=== PATIENT | female | born 1955 | race Caucasian/White ===

== ENCOUNTER 2018-05-17 11:51 | Inpatient (IN) | payer MEDICARE ==
[~2018-05-17] VITALS: Ht 162.6 cm; Wt 94.6 kg
--- NOTE | 2018-05-17 12:13 | PHYS DOC ---
Past History Past Medical History: CAD, Diabetes, Hypertension Smoking: Quit Greater Than 1 Year Adult General Chief Complaint Chief Complaint: CHEST PAIN HPI HPI Patient is a 63-year-old female who presents to the emergency department for evaluation. She states that since this morning, she has been having some anterior chest pressure, with radiation towards her axilla bilaterally. The discomfort has been waxing and waning, seems to be somewhat worsened by exertion. She has not had any significant shortness of breath. She has not had any nausea, vomiting, diaphoresis. She states she had a heart attack about 3 years ago, and states his symptoms are not quite has developed as they were at that time, but she waited several hours after her symptoms started last time before coming to get medical care. 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 A catheterization report from [facility] is being requested. She is having some mild discomfort at this time, the pain is not significant. There are no alleviating or exacerbating factors to the patient's symptoms, except as noted above. Review of Systems Review of Systems Constitutional: Denies fever or chills [] Eyes: Denies change in visual acuity, redness, or eye pain [] HENT: Denies nasal congestion or sore throat [] Respiratory: Denies cough or shortness of breath [] Cardiovascular: No additional information not addressed in HPI [] GI: Denies abdominal pain, nausea, vomiting, bloody stools or diarrhea [] : Denies dysuria or hematuria [] Musculoskeletal: Denies back pain or joint pain [] Integument: Denies rash or skin lesions [] Neurologic: Denies headache, focal weakness or sensory changes [] Endocrine: Denies polyuria or polydipsia [] All other systems were reviewed and found to be within normal limits, except as documented in this note. Current Medications Current Medications Current Medications Medications (Trade) Dose Ordered Sig/Esther Start Time Stop Time Status Last Admin Dose Admin Aspirin (Children'S Aspirin) 324 mg 1X ONCE 05/17/18 12:15 05/17/18 12:16 UNV Morphine Sulfate (Morphine 2mg Syringe) 4 mg 1X ONCE 05/17/18 12:15 05/17/18 12:16 UNV Nitroglycerin (Nitrostat) 0.4 mg 1X ONCE 05/17/18 12:15 05/17/18 12:16 UNV Allergies Allergies Allergies Coded Allergies Type Severity Reaction Last Updated Verified No Known Drug Allergies 05/17/18 No Physical Exam Physical Exam PHYSICAL EXAM: CONSTITUTIONAL: Well developed, well nourished HEAD: normocephalic, atraumatic EENT: PERRL, EOMI. Conjunctivae normal color, sclerae non-icteric; moist mucous membranes. NECK: Supple, non-tender; no meningismus. LUNGS: Lungs CTA, breathing even and unlabored. Normal air movement. HEART: Regular rate and rhythm, no murmur CHEST: No deformity; non-tender ABDOMEN: The abdomen is soft, and non-tender, no masses or bruits. EXTREM: Normal ROM; no deformity, no calf tenderness. Normal pulses palpable in all extremities. There is no pedal edema. SKIN: No rash; no diaphoresis NEURO: Alert; normal speech and cognition; CN's grossly intact; strength grossly intact without focal deficit. BACK: No CVA TTP. Current Patient Data Lab Results Laboratory Tests Test 05/17/18 12:24 White Blood Count 4.2 x10^3/uL Red Blood Count 4.46 x10^6/uL Hemoglobin 13.8 g/dL Hematocrit 41.3 % Mean Corpuscular Volume 93 fL Mean Corpuscular Hemoglobin 31 pg Mean Corpuscular Hemoglobin Concent 33 g/dL Red Cell Distribution Width 14.0 % Platelet Count 203 x10^3/uL Neutrophils (%) (Auto) 50 % Lymphocytes (%) (Auto) 35 % Monocytes (%) (Auto) 10 % Eosinophils (%) (Auto) 5 % Basophils (%) (Auto) 1 % Neutrophils # (Auto) 2.1 x10^3uL Lymphocytes # (Auto) 1.5 x10^3/uL Monocytes # (Auto) 0.4 x10^3/uL Eosinophils # (Auto) 0.2 x10^3/uL Basophils # (Auto) 0.0 x10^3/uL Prothrombin Time 9.8 SEC Prothromb Time International Ratio 1.0 Activated Partial Thromboplast Time 22 SEC Sodium Level 137 mmol/L Potassium Level 4.4 mmol/L Chloride Level 102 mmol/L Carbon Dioxide Level 27 mmol/L Anion Gap 8 Blood Urea Nitrogen 11 mg/dL Creatinine 0.5 mg/dL Estimated GFR (Cockcroft-Gault) 123.8 BUN/Creatinine Ratio 22 Glucose Level 172 mg/dL Calcium Level 9.1 mg/dL Total Bilirubin 0.5 mg/dL Aspartate Amino Transf (AST/SGOT) 23 U/L Alanine Aminotransferase (ALT/SGPT) 29 U/L Alkaline Phosphatase 81 U/L Creatine Kinase 49 U/L Creatine Kinase MB (Mass) 0.7 ng/mL Creatine Kinase MB Relative Index 1.4 % Troponin I Quantitative < 0.017 ng/mL UZ-Hdq-N-Type Natriuretic Peptide 344 pg/mL Total Protein 7.4 g/dL Albumin 3.2 g/dL Albumin/Globulin Ratio 0.8 Current Medications Medications (Trade) Dose Ordered Sig/Esther Route PRN Reason Start Time Stop Time Status Last Admin Dose Admin Aspirin (Children'S Aspirin) 324 mg 1X ONCE PO 05/17/18 12:45 05/17/18 12:46 DC 05/17/18 12:18 Morphine Sulfate (Morphine 4mg Syringe) 4 mg 1X ONCE IV 05/17/18 12:45 05/17/18 12:46 DC Nitroglycerin (Nitrostat) 0.4 mg 1X ONCE SL 05/17/18 12:45 05/17/18 12:46 DC 05/17/18 12:28 Aspirin (Children'S Aspirin) 81 mg STK-MED ONCE .ROUTE 05/17/18 12:16 05/17/18 12:17 DC EKG EKG Normal sinus rhythm at a rate of 70 beats for minute, normal axis, normal intervals, nonspecific ST/T changes, poor anterior R-wave progression is present.[] Radiology/Procedures Radiology/Procedures [PROCEDURE: PORTABLE CHEST 1V PROCEDURE: PORTABLE CHEST 1V CLINICAL INDICATION: CHEST PAIN COMPARISON: None FINDINGS: No pneumothorax identified. Cardiac and mediastinal contours unremarkable. No pulmonary consolidation or acute airspace disease. No acute osseous abnormalities identified. IMPRESSION: No pulmonary consolidation or acute airspace disease. ] Course & Med Decision Making Course & Med Decision Making Pertinent Labs and Imaging studies reviewed. (See chart for details) []The patient's condition remains stable. I spoke with the hospitalist, who accepted the patient to the hospital for further evaluation and treatment. Patient is currently pain-free., At 2:05 PM. Dragon Disclaimer Dragon Disclaimer This electronic medical record was generated, in whole or in part, using a voice recognition dictation system. Departure Departure: Impression: Primary Impression: Chest pain Disposition: XFER SHT-TRM HOSP Condition: STABLE Referrals: ELIDIA CHI MD (PCP) DEBBIE FRANZ MD May 17, 2018 12:13
[2018-05-17] MEDS ORDERED: ASPIRIN 81 MG TAB.CHEW ONE (12:16)
[2018-05-17 12:38] LABS: BASO % 1 % (0-3); EOS # 0.2 x10^3/uL (0.0-0.7); EOS % 5 % (0-3); HEMATOCRIT 41.3 % (36.0-47.0); HEMOGLOBIN 13.8 g/dL (12.0-15.5); LYMPH # 1.5 x10^3/uL (1.0-4.8); LYMPH % 35 % (24-48); MEAN CORPUSCULAR HEMOGLOBIN 31 pg (25-35); MEAN CORPUSCULAR HGB CONC 33 g/dL (31-37); MEAN CORPUSCULAR VOLUME 93 fL (79-100); MONO # 0.4 x10^3/uL (0.0-1.1); MONO % 10 % (0-9); NEUT # 2.1 x10^3uL (1.8-7.7); NEUT % 50 % (31-73); PLATELET COUNT 203 x10^3/uL (140-400); RED BLOOD COUNT 4.46 x10^6/uL (3.50-5.40); WHITE BLOOD COUNT 4.2 x10^3/uL (4.0-11.0)
[2018-05-17] MEDS ORDERED: MORPHINE SULFATE 4 MG/ML DISP.SYRIN. IV ONE (12:45)
[2018-05-17] MEDS ORDERED: ASPIRIN 81 MG TAB.CHEW PO ONE (12:45)
[2018-05-17] MEDS ORDERED: NITROGLYCERIN SUBLINGUAL 0.4 MG BOTTLE OF 25. SL ONE (12:45)
--- NOTE | 2018-05-17 12:54 | RAD ---
PROCEDURE: PORTABLE CHEST 1V CLINICAL INDICATION: CHEST PAIN COMPARISON: None FINDINGS: No pneumothorax identified. Cardiac and mediastinal contours unremarkable. No pulmonary consolidation or acute airspace disease. No acute osseous abnormalities identified. IMPRESSION: No pulmonary consolidation or acute airspace disease. Electronically signed by: Kip Peterson DO (05/17/2018 12:51 PM) [facility]
[2018-05-17 13:03] LABS: ALBUMIN 3.2 g/dL (3.4-5.0); ALBUMIN/GLOBULIN RATIO 0.8 (1.0-1.7); CALCIUM 9.1 mg/dL (8.5-10.1); CREATININE 0.5 mg/dL (0.6-1.0); GFR 123.8; POTASSIUM 4.4 mmol/L (3.5-5.1); TOTAL BILIRUBIN 0.5 mg/dL (0.2-1.0); TOTAL PROTEIN 7.4 g/dL (6.4-8.2)
[2018-05-17 15:07] VITALS: BP 177/98
[2018-05-17] MEDS ORDERED: CARV25TA2 PO (17:14)
[2018-05-17] MEDS ORDERED: INSU100I30 SQ (17:14)
[2018-05-17] MEDS ORDERED: CITA20TA6 PO (17:14)
[2018-05-17] MEDS ORDERED: METF10007 PO (17:14)
[2018-05-17] MEDS ORDERED: LISI-338 PO (17:14)
[2018-05-17] MEDS ORDERED: ATOR40TA59 PO (17:14)
[2018-05-17] MEDS: metFORMIN 500 MG TABLET PO SCH (17:33)
[2018-05-17 17:38] VITALS: BP 132/81
--- NOTE | 2018-05-17 18:06 | HP ---
ADMIT DATE: 05/17/2018 HISTORY OF PRESENT ILLNESS: The patient is a 63-year-old female patient who came to the Emergency Room as she developed chest pain that was radiating to the right and left axillary areas, started after she woke up at 6:30 in the morning. The pain has been waxing and waning. The pain was initially rated as 8/10 that came down to around 3, by the time she came to the Emergency Room, the pain has completely subsided. She denied any nausea or vomiting. Denied any diaphoresis or shortness of breath. She stated that her symptoms are very similar to her symptoms when she had had a heart attack 3 years ago when she was admitted to [facility] license of [facility]. 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 By the time, she arrived to the hospital, she was chest pain free. PAST MEDICAL HISTORY: Significant for hypertension, hyperlipidemia and type 2 diabetes. PAST SURGICAL HISTORY: Significant for bilateral total hip arthroplasty in 1998 and 2004. She has left ankle fracture, status post open reduction and internal fixation, cholecystectomy, total abdominal hysterectomy, bilateral salpingo-oophorectomy, appendectomy, 2 wisdom tooth extraction, left hip dislocation twice. ALLERGIES: She apparently has no known drug allergies. MEDICATIONS: She is currently on following medications. She is on carvedilol 6.25 mg twice a day, atorvastatin calcium 40 mg at bedtime, citalopram hydrobromide 20 mg once a day. She is on lisinopril 5 mg once a day, metformin 1000 mg twice a day and Tresiba 26 units every evening. FAMILY HISTORY: She has 2 stillborn babies, one sister of congenital heart disease. One brother was a drug addict and , never known him. Her father in his 60s due to pancreatic cancer. Mother at the age of 83 because of COPD and congestive heart failure. SOCIAL HISTORY: She is , has 2 daughters. Quit smoking 4 years ago. She smoked 1 pack a day for more than 40 years. She is a recovering alcoholic. She has not touched alcohol for more than 31 years, does not use any drugs. 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 REVIEW OF SYSTEMS: The patient denied any blurring of vision, cataract, glaucoma or macular degeneration. Denied any earache, tinnitus or sensorineural deafness. Denied any nosebleeds, stuffy nose or postnasal drip. Denied any sore throat, sore tongue, toothache, hoarseness of voice or difficulty swallowing. Denied any nausea, vomiting, diarrhea or constipation. Denied any hematemesis, melena or hematochezia. Denied any dysuria, frequency or hematuria. Did complain of chest pain, but denied any shortness of breath, orthopnea, or paroxysmal nocturnal dyspnea. PHYSICAL EXAMINATION: GENERAL: On arrival to the Emergency Room, she looked well and was clearly in no apparent respiratory distress. No pallor, jaundice, cyanosis, or thyromegaly. No jugular venous distension. No lower limb edema. VITAL SIGNS: Her heart rate was 76, blood pressure was 161/91, temperature was 98, respiratory rate was 18 and oxygen saturation was 96% on room air. HEAD, EYES, EARS, NOSE AND THROAT: Showed normocephalic, atraumatic. NECK: Supple. HEART: Showed normal first and second heart sounds. No gallop, rub or murmur. CHEST: Clear to auscultation. No crepitation or rhonchi. ABDOMEN: Distended, soft, nontender. NEUROLOGIC: She is awake, alert, responding appropriately. All cranial nerves are intact. EXTREMITIES: She moves extremities without difficulty. She ambulates without assistance or assistive devices. LABORATORY DATA: Showed a white cell count 4200, hemoglobin 14, hematocrit 41, MCV 93, and platelet count 203,000. Her chemistry showed a serum sodium 137, potassium 4.4, chloride 102, bicarbonate 27, anion gap of 8, BUN 11, creatinine 0.5. Estimated GFR was 123 mL per minute. Her glucose 172, calcium was 9.1. Total bilirubin, AST, ALT, alkaline phosphatase were normal. Her first set of cardiac enzymes showed troponin to be less than 0.017. Her beta natriuretic peptide was 344. Total protein was 7.4, albumin was 3.2. Her prothrombin time was 9.8, INR of 1, aPTT was 22. She did have a chest x-ray, which showed that the patient has no pneumothorax. Cardiac and mediastinal contours unremarkable. No pulmonary consolidation or acute airspace disease. No acute osseous abnormalities identified. Her EKG showed that she was in normal sinus rhythm at 70 beats per minute with normal axis and normal interval with nonspecific ST-T changes with poor R-wave progression. PLAN: The patient was admitted with 2 more sets of cardiac enzymes. We will check her fasting lipid profile tomorrow and we will consult the cardiology team for further evaluation and treatment. ARPAN RODRIGUEZ MD DR: EULA/delmar JOB#: [id number] / [id number]
[2018-05-17 19:31] VITALS: BP 132/69
[2018-05-17] MEDS ORDERED: INSULIN GLARGINE 300 UNITS/3 ML INSULN.PEN. SQ SCH (21:00)
[2018-05-17 22:20] VITALS: BP 139/74
[2018-05-18] MEDS ORDERED: ACETAMINOPHEN 325 MG TABLET PO PRN (05:30)
[2018-05-18 05:55] VITALS: BP 151/82
[2018-05-18] MEDS: metFORMIN 500 MG TABLET PO SCH (08:04)
--- NOTE | 2018-05-18 08:42 | PDOC2 ---
LEMOISÉS April TIRE FINISHER 05/18/18 0842: CONSULT Date of Admission DATE: 05/18/18 TIME: 08:40 Reason for Consult: cp Problem List Problems Medical Problems: (1) Chest pain Status: Acute History of Present Illness Ms Boss is a 63 year old female who presents with complaints of chest pain. She reports history of WA approx 3 years ago for which she underwent cardiac cath at [facility]. Cath reports reveals moderate disease with a LAD distally small and complete occlusion at apex consistent with dissection. She did not require stents. EF was 50%. She reports shortness of breath with exertion that has been slowly increasing over the last 6 months. In early Apr she assisted with arrangements for x in [place]. She reports it was very cold and she had difficulty breathing. She developed a cough and increased shortness of breath which lasted for a couple weeks. This resolved towards End of Apr bur she has continued to note decreased functionality. Yesterday am she woke with waking and waning chest pressure across her chest into both axilla. She had associated increased dyspnea and mild nausea. She reports pain similar to prior WA but not as severe. she reports continued to have pain off and on while preparing for work and that symptoms improved with sitting in recliner. While driving toward work she had recurrence of pain which prompted her to stop at ED for evaluation. She additionally complains of increased edema in the evenings, varicosities and muscle pain in her legs with walking for 10-15 minutes which is relieved with sitting down for about 10 min. Cardiovascular: CAD, HTN, WA, hyperipidemia Pulmonary: Pneumonia Musculoskeletal: Osteoarthritis Endocrine: Diabetes Past Surgical History: Appendectomy (possibly, she is unsure), Cholecystectomy , Total hip replacement, Tubal Ligation, Hysterectomy, Other (ankle repair) Family History premature coronary disease Social History prior smoker, quit 4 years ago. no significant ETOH, no illicit drugs Current Medications Current Medications Aspirin (Children'S Aspirin) 324 mg 1X ONCE PO Last administered on 05/17/18at 12:18; Start 05/17/18 at 12:45; Stop 05/17/18 at 12:46; Status DC Morphine Sulfate (Morphine 4mg Syringe) 4 mg 1X ONCE IV ; Start 05/17/18 at 12: 45; Stop 05/17/18 at 12:46; Status DC Nitroglycerin (Nitrostat) 0.4 mg 1X ONCE SL Last administered on 05/17/18at 12: 28; Start 05/17/18 at 12:45; Stop 05/17/18 at 12:46; Status DC Aspirin (Children'S Aspirin) 81 mg STK-MED ONCE .ROUTE ; Start 05/17/18 at 12:16 ; Stop 05/17/18 at 12:17; Status DC Citalopram Hydrobromide (CeleXA) 20 mg DAILY PO Last administered on 05/18/18at 08:04; Start 05/18/18 at 09:00 Atorvastatin Calcium (Lipitor) 40 mg DAILY PO Last administered on 05/18/18at 08 :04; Start 05/18/18 at 09:00 Carvedilol (Coreg) 6.25 mg BIDWMEALS PO ; Start 05/18/18 at 17:30 Insulin Glargine (Lantus) 30 units QHS SQ Last administered on 05/17/18at 21:04 ; Start 05/17/18 at 21:00 Lisinopril (Prinivil) 5 mg DAILY PO Last administered on 05/18/18at 08:04; Start 05/18/18 at 09:00 Metformin HCl (Glucophage) 1,000 mg BIDWMEALS PO Last administered on at 08:04; Start 05/17/18 at 17:30 Acetaminophen (Tylenol) 650 mg PRN Q6HRS PRN PO PAIN / TEMP Last administered on 05/18/18at 05:49; Start 05/18/18 at 05:30 Active Scripts Active Reported Tresiba Flextouch U-100 (Insulin Degludec) 100 Unit/1 Ml Insuln.pen 100 Unit SQ HS Metformin Hcl 1,000 Mg Tablet 1 Tab PO BID Lisinopril 5 Mg Tablet 1 Tab PO DAILY Citalopram Hbr (Citalopram Hydrobromide) 20 Mg Tablet 20 Mg PO DAILY Carvedilol 25 Mg Tablet 6.25 Mg PO BIDWMEALS Atorvastatin Calcium 40 Mg Tablet 1 Tab PO DAILY Allergies: Coded Allergies: No Known Drug Allergies (Unverified , 05/17/18) Review of System as per HPI or negative General: Alert, Oriented X3, Cooperative, No acute distress HEENT: Atraumatic, EOMI, Mucous membr. moist/pink Lungs: Clear to auscultation, Normal air movement Heart: Normal S1, Normal S2, Other (no gallops, clicks or rubs) Abdomen: Normal bowel sounds, Soft, No tenderness Extremities: No cyanosis, Normal pulses, Other (trace to 1+ edema) Neuro: Normal speech, Strength at 5/5 X4 ext Psych/Mental Status: Mental status NL, Mood NL VITALS Vital Signs Date Time Temp Pulse Resp B/P (MAP) Pulse Ox O2 Delivery O2 Flow Rate FiO2 05/18/18 08:09 Room Air 05/18/18 08:04 74 151/82 05/18/18 05:55 97.5 18 96 Labs Laboratory Tests Test 05/17/18 12:24 05/17/18 18:00 05/17/18 20:07 05/17/18 21:45 White Blood Count 4.2 x10^3/uL (4.0-11.0) Red Blood Count 4.46 x10^6/uL (3.50-5.40) Hemoglobin 13.8 g/dL (12.0-15.5) Hematocrit 41.3 % (36.0-47.0) Mean Corpuscular Volume 93 fL (79-100) Mean Corpuscular Hemoglobin 31 pg (25-35) Mean Corpuscular Hemoglobin Concent 33 g/dL (31-37) Red Cell Distribution Width 14.0 % (11.5-14.5) Platelet Count 203 x10^3/uL (140-400) Neutrophils (%) (Auto) 50 % (31-73) Lymphocytes (%) (Auto) 35 % (24-48) Monocytes (%) (Auto) 10 % (0-9) Eosinophils (%) (Auto) 5 % (0-3) Basophils (%) (Auto) 1 % (0-3) Neutrophils # (Auto) 2.1 x10^3uL (1.8-7.7) Lymphocytes # (Auto) 1.5 x10^3/uL (1.0-4.8) Monocytes # (Auto) 0.4 x10^3/uL (0.0-1.1) Eosinophils # (Auto) 0.2 x10^3/uL (0.0-0.7) Basophils # (Auto) 0.0 x10^3/uL (0.0-0.2) Prothrombin Time 9.8 SEC (9.4-11.4) Prothromb Time International Ratio 1.0 (0.9-1.1) Activated Partial Thromboplast Time 22 SEC (23-33) Sodium Level 137 mmol/L (136-145) Potassium Level 4.4 mmol/L (3.5-5.1) Chloride Level 102 mmol/L (98-107) Carbon Dioxide Level 27 mmol/L (21-32) Anion Gap 8 (6-14) Blood Urea Nitrogen 11 mg/dL (7-20) Creatinine 0.5 mg/dL (0.6-1.0) Estimated GFR (Cockcroft-Gault) 123.8 BUN/Creatinine Ratio 22 (6-20) Glucose Level 172 mg/dL (70-99) Calcium Level 9.1 mg/dL (8.5-10.1) Total Bilirubin 0.5 mg/dL (0.2-1.0) Aspartate Amino Transf (AST/SGOT) 23 U/L (15-37) Alanine Aminotransferase (ALT/SGPT) 29 U/L (14-59) Alkaline Phosphatase 81 U/L (46-116) Creatine Kinase 49 U/L (26-192) Creatine Kinase MB (Mass) 0.7 ng/mL (0.0-3.6) Creatine Kinase MB Relative Index 1.4 % (0-4) Troponin I Quantitative < 0.017 ng/mL (0-0.055) < 0.017 ng/mL (0-0.055) < 0.017 ng/mL (0-0.055) MZ-Lje-G-Type Natriuretic Peptide 344 pg/mL (0-124) Total Protein 7.4 g/dL (6.4-8.2) Albumin 3.2 g/dL (3.4-5.0) Albumin/Globulin Ratio 0.8 (1.0-1.7) Glucose (Fingerstick) 233 mg/dL (70-99) Test 05/18/18 07:39 Glucose (Fingerstick) 138 mg/dL (70-99) Images CXR - no acute abn EKG - sinus rhythm, leftward axis, delayed r progression, non specific st/t abn , no acute ischemic changes Assessment/Plan 1. exertional chest pain consistent with angina in the setting of known coronary disease and prior WA - WA ruled out. EKG without acute abn. Suggest echo for LV function and wall motion, check lipids, continue beta bernadine, aspirin and statin. Ambulate and add nitrate. if no recurrent chest pain, could have outpatient MPI. 2. CAD with prior apical WA - cath report reviewed. continue medical therapy. 3. hypertension - resume home medications. add nitrates and monitor. adjust antihypertensives as needed. 4. hyperlipidemia - continue statin, check lipids 5. diabetes mellitus - continue home medications. consider addition of Jardiance for reduction of CV risk. 6. claudication and probable venous insufficiency - outpatient evluation REFUGIO GOODMAN MD 05/18/18 1920: CONSULT Assessment/Plan Patient seen and examined. Agree with above nurse practitioner note. 63-year-old woman presenting with chest pain with exertion. Early with negative cardiac enzymes are normal echocardiogram. She has known previous coronary artery dissection. No obvious signs of ischemia by EKG. I had a long discussion with her about various options including ischemic testing versus invasive angiography versus continued medical management. She appears continued medical management given that her symptoms are resolved now and she is doing well. She's ambulated without any recurrence of pain. Supportive care for now. We'll follow-up in the office in 4 weeks. MOISÉS LUJAN APRN May 18, 2018 08:42 REFUGIO GOODMAN MD May 18, 2018 19:20
[2018-05-18] MEDS ORDERED: CITALOPRAM 20 MG TABLET. PO SCH (09:00)
[2018-05-18] MEDS ORDERED: ATORVASTATIN CALCIUM 20 MG TABLET PO SCH (09:00)
[2018-05-18] MEDS ORDERED: LISINOPRIL 5 MG TABLET. PO SCH (09:00)
[2018-05-18 11:05] VITALS: BP 148/68
[2018-05-18 16:00] VITALS: BP 124/85
--- NOTE | 2018-05-18 16:40 | CARD ---
MR#: [id number] Date of Study: 05/18/2018 Ordering Physician: MOISÉS LUJAN, Referring Physician: ARPAN RODRIGUEZ, Tech: Elsy Gibbs APPROVED REPORT EXAM: Two-dimensional and M-mode echocardiogram with Doppler and color Doppler. Other Information Quality : AverageHR: 84bpm INDICATION Chest Pain RISK FACTORS Hypertension Hyperlipidemia Diabetes 2D DIMENSIONS RVDd2.5 (2.9-3.5cm)Left Atrium(2D)3.1 (1.6-4.0cm) IVSd1.0 (0.7-1.1cm)Aortic Root(2D)2.7 (2.0-3.7cm) LVDd4.6 (3.9-5.9cm)LVOT Diameter2.0 (1.8-2.4cm) PWd1.2 (0.7-1.1cm)LVDs3.0 (2.5-4.0cm) FS (%) 34.5 %SV61.7 ml Aortic Valve AoV Peak Rodri.152.6cm/sAoV VTI31.9cm AO Peak GR.9.3mmHgLVOT Peak Rodri.101.7cm/s LVOT VTI 21.86cmAO Mean GR.6mmHg NENA (VMAX)2.01kc6WYP (VTI)2.07cm2 Mitral Valve MV E Aessrkbd19.5cm/sMV DECEL [id number] MV A Icedgvur84.4cm/sE/A Ratio0.7 Pulmonary Valve PV Peak Jhiwwstq18.0cm/sPV Peak Grad.4mmHg Tricuspid Valve TR P. Piitcwyh969vr/sRAP UNBEAION6mxSz TR Peak Gr.14cgVrICTN01vzTd Pulmonary Vein S1 Oinhwrsv80.4cm/sD2 Cucjlhjl01.2cm/s LEFT VENTRICLE The left ventricle is normal size. There is mild concentric left ventricular hypertrophy. The left ve ntricular systolic function is normal and the ejection fraction is within normal range. The Ejection Fraction is 55-60%. There is normal LV segmental wall motion. Transmitral Doppler flow pattern is Gra de I-abnormal relaxation pattern. RIGHT VENTRICLE The right ventricle is normal size. There is normal right ventricular wall thickness. The right ventr icular systolic function is normal. ATRIA The left atrium size is normal. The right atrium size is normal. Hypertrophy of the interatrial septu m is noted. AORTIC VALVE The aortic valve is normal in structure and function. Doppler and Color Flow revealed no significant aortic regurgitation. There is no significant aortic valvular stenosis. MITRAL VALVE The mitral valve is normal in structure and function. There is no evidence of mitral valve prolapse. There is no mitral valve stenosis. Doppler and Color Flow revealed trace mitral valve regurgitation. TRICUSPID VALVE The tricuspid valve is normal in structure and function. Doppler and Color Flow revealed trace tricus pid valve regurgitation noted with an estimated PAP of 30 mmHg. There is no tricuspid valve stenosis. PULMONIC VALVE The pulmonic valve is not well visualized. Doppler and Color Flow revealed no pulmonic valvular regur gitation. GREAT VESSELS The aortic root is normal in size. The IVC is normal in size and collapses >50% with inspiration. PERICARDIAL EFFUSION There is no evidence of significant pericardial effusion. Critical Notification Critical Value: No <Conclusion> The left ventricle is normal size. The left ventricular systolic function is normal and the ejection fraction is within normal range. The Ejection Fraction is 55-60%. There is mild concentric left ventricular hypertrophy. Hypertrophy of the interatrial septum is noted. There is no significant aortic valvular stenosis. Doppler and Color Flow revealed no significant aortic regurgitation. Doppler and Color Flow revealed trace mitral valve regurgitation. Doppler and Color Flow revealed trace tricuspid valve regurgitation noted with an estimated PAP of 30 mmHg. Signed by : Saji Ricks MD Electronically Approved : 05/18/2018 16:39:45
[2018-05-18] MEDS ORDERED: CARVEDILOL 6.25 MG TABLET PO SCH (17:30)
--- NOTE | 2018-05-18 18:00 | EKG ---
[address] [address] Test Date: 2018-05-17 Test Time: 12:02:19 Pat Name: BONNIE TELLES Department: Room: 123 A Gender: F Facilities Locator: MERLYN : 1955 Requested By: DEBBIE FRANZ Order Number: [id number] Reading MD: Nicolás Salinas MD Measurements Intervals [place] Rate: 78 P: 36 NV: 160 QRS: 24 QRSD: 84 T: 56 QT: 362 QTc: 416 Interpretive Statements SINUS RHYTHM Electronically Signed On 05-20-2018 16:08:51 CDT by Nicolás Salinas MD
--- NOTE | 2018-05-18 19:13 | DS ---
DATE OF DISCHARGE: 05/18/2018 HOSPITAL COURSE: The patient is a 63-year-old female patient, who came to the Emergency Room with complaint of recurrent episode of chest pain. She has had 3 sets of cardiac enzymes that were negative. She was seen in consultation by the Cardiology team, has had her fasting lipid profile, which showed that her serum triglyceride was 90, cholesterol 139, LDL cholesterol was 65, VLDL was 18, and the ratio was 2. She has an echocardiogram done, which basically showed that her left ventricle is normal in size. The left ventricular systolic function is normal with ejection fraction within normal range. The ejection fraction is 55-60%. There is mild concentric left ventricular hypertrophy. Hypertrophy of the interatrial septum is noted. There is no significant aortic valvular stenosis. Doppler and color flow revealed no significant aortic regurgitation, trace mitral regurgitation, and trace tricuspid regurgitation with an estimated pulmonary artery pressure of 30 mmHg. The Cardiology team recommended the patient can be discharged home to follow with as an outpatient. PHYSICAL EXAMINATION: GENERAL: When I saw her this afternoon, she was sitting in the edge of the bed comfortably in no apparent respiratory distress. No pallor, jaundice, cyanosis, or thyromegaly. No jugular venous distension. No lower limb edema. VITAL SIGNS: Her heart rate was 97, blood pressure was 124/85, temperature was 98.2, respiratory rate was 18 and oxygen saturation was 94%. HEAD, EYES, EARS, NOSE AND THROAT: Showed normocephalic, atraumatic. NECK: Supple. HEART: Showed normal first and second heart sounds with no gallop, rub or murmur. CHEST: Clear to auscultation. No crepitation or rhonchi. ABDOMEN: Distended, soft, nontender. No guarding or rigidity. No organomegaly. All hernial orifice intact. Bowel sounds normal. NEUROLOGIC: She was awake, alert, responding appropriately. All cranial nerves intact. She moves extremities without difficulty. She ambulates without assistance or assistive devices. LABORATORY DATA: Her lab work showed she has 3 sets of cardiac enzymes showed the troponin to be less than 0.017. Her fasting lipid profile showed her serum triglycerides were 90, total cholesterol 139, LDL was 65, VLDL was 18 and HDL cholesterol was 56 with ratio of 2. She was discharged home to continue on atorvastatin calcium 40 mg at bedtime, carvedilol 6.25 mg twice a day with meals, citalopram hydrobromide 20 mg daily, Tresiba 100 units subcu, lisinopril 5 mg tablet once a day, metformin 1000 mg twice a day. FINAL DISCHARGE DIAGNOSES: 1. Chest pain, myocardial infarction ruled out. The EKG was normal. Three cardiac enzymes were negative. Her echocardiogram also showed that she has mild concentric left ventricular hypertrophy with normal left ventricular systolic function and normal ejection fraction. 2. Coronary artery disease, status post myocardial infarction. 3. Hypertension. 4. Hyperlipidemia. 5. Type 2 diabetes mellitus, on Tresiba and metformin. ARPAN RODRIGUEZ MD DR: EULA/delmar JOB#: [id number] / [id number]
[2018-05-19 05:12] LABS: HEMOGLOBIN A1C 8.6 % (4.8-5.6)
== END 2018-05-18 17:30 | disposition home or self-care (01) | DRG 303 ==
LOC: ER 11:51 → 1 SOUTH 13:50
PROVIDERS: ADMIT Internal Medicine; ATTEND Internal Medicine
DX: I25.119 Atherosclerotic heart disease of native coronary artery with unspecified angina pectoris (principal); E11.51 Type 2 diabetes mellitus with diabetic peripheral angiopathy without gangrene; E78.5 Hyperlipidemia, unspecified; I11.9 Hypertensive heart disease without heart failure; M19.90 Unspecified osteoarthritis, unspecified site; Z96.643 Presence of artificial hip joint, bilateral; I25.2 Old myocardial infarction; Z79.899 Other long term (current) drug therapy; Z80.0 Family history of malignant neoplasm of digestive organs; Z81.3 Family history of other psychoactive substance abuse and dependence; Z82.49 Family history of ischemic heart disease and other diseases of the circulatory system; Z82.5 Family history of asthma and other chronic lower respiratory diseases; Z87.891 Personal history of nicotine dependence; Z90.710 Acquired absence of both cervix and uterus; Z90.722 Acquired absence of ovaries, bilateral; Z90.49 Acquired absence of other specified parts of digestive tract
CPT/HCPCS: 36415; 71045; 80053; 80061; 82553; 82947; 83036; 83880; 84484; 85025; 85610; 85730; 93005; 93306; J1815; 99285-25

== ENCOUNTER → 2019-04-27 | Outpatient (CLI) | payer MEDICARE ==
[~2019-04-27] MED LIST: ATOR40TA59 PO; CARV25TA2 PO; CITA20TA6 PO; INSU100I30 SQ; LISI-338 PO; METF10007 PO
--- NOTE | 2019-04-27 17:18 | RAD ---
Right lower extremity arterial ultrasound History: Right leg pain Findings: Multiple grayscale, color, and duplex spectral analysis sonographic images were acquired of the right lower extremity arteries. There are no previous similar exams. There are mostly biphasic waveforms on the right lower extremity arteries. There is greater degree of plaque of the distal right common femoral artery and proximal right profunda femoris artery. Velocities in cm/sec: Common femoral artery 259 Profunda femoris artery 224 Proximal SFA velocity not obtained Mid SFA 158 Distal SFA 129 Popliteal artery 85 Posterior tibial artery 58 proximally and 74 distally Peroneal artery 62 Anterior tibial artery 71 Dorsalis pedis artery 71 Impression: 1. There is increased velocity of the right common femoral artery which may be due to more proximal inflow stenosis, also elevated velocity of the right profunda femoris artery and mid superficial femoral artery which may be due to degree of stenoses although overall patent on color images. No velocity was obtained for the proximal superficial femoral artery for this exam. There is plaque greatest of the common femoral artery and proximal superficial femoral artery. Electronically signed by: Tom Orourke MD (04/27/2019 5:15 PM) [id number]
== END | disposition home or self-care (01) ==
LOC: US 14:34
PROVIDERS: ATTEND Family Medicine
DX: I70.201 Unspecified atherosclerosis of native arteries of extremities, right leg (principal)
CPT/HCPCS: 93926

== ENCOUNTER → 2019-09-04 | Outpatient (CLI) | payer MEDICARE ==
--- NOTE | 2019-09-04 16:50 | RAD ---
Carotid doppler ultrasound History: Hypertension, peripheral arterial disease and myocardial infarct Multiple grayscale, color, and duplex spectral analysis waveform sonographic images were acquired of the carotid, subclavian, and vertebral arteries. Comparison: None Findings: RIGHT: PSV cm/sec EDV cm/sec Common carotid artery 86 15 Maximal internal carotid artery 64 18 External carotid artery 91 Vertebral artery 50 ICA/CCA ratio 0.74 LEFT: PSV cm/sec EDV cm/sec Common carotid artery 87 22 Maximum internal carotid artery 84 28 External carotid artery 77 Vertebral artery 47 ICA/CCA ratio 0.96 Velocities used to determine stenosis are known to correlate with NASCET angiographic criteria. There is antegrade flow in the bilateral vertebral arteries. There is some eccentric, echogenic, overall mild plaque of the proximal internal carotid arteries, left greater than right. No significant stenosis is demonstrated on grayscale or color images. Impression: 1. There is no evidence of a hemodynamically significant stenosis. There is bilateral plaque greater on the left. Electronically signed by: Tom Orourke MD (09/04/2019 4:47 PM) [facility]
== END ==
LOC: US 13:01
PROVIDERS: ATTEND Internal Medicine Cardiovascular Disease
DX: I67.2 Cerebral atherosclerosis (principal); I10 Essential (primary) hypertension
CPT/HCPCS: 93880

== ENCOUNTER → 2020-06-04 | Outpatient (CLI) | payer MEDICARE ==
[~2020-06-04] MED LIST changes: -LISI-338 PO; +LISI-517 PO
--- NOTE | 2020-06-04 17:06 | CARD ---
MR#: [id number] Date of Study: 06/04/2020 Ordering Physician: REFUGIO GOODMAN, Referring Physician: REFUGIO GOODMAN, Tech: Elsy Gibbs, [facility] APPROVED REPORT EXAM: Two-dimensional and M-mode echocardiogram with Doppler and color Doppler. Other Information Quality : AverageHR: 72bpm INDICATION Cardiac Disease: CAD RISK FACTORS Hypertension Hyperlipidemia Diabetes 2D DIMENSIONS RVDd2.9 (2.9-3.5cm)Left Atrium(2D)2.9 (1.6-4.0cm) IVSd0.8 (0.7-1.1cm)Aortic Root(2D)2.9 (2.0-3.7cm) LVDd4.1 (3.9-5.9cm)LVOT Diameter1.9 (1.8-2.4cm) PWd0.9 (0.7-1.1cm)LVDs3.0 (2.5-4.0cm) FS (%) 26.3 %SV37.9 ml LVEF(%)52.0 (>50%) Aortic Valve AoV Peak Rodri.129.3cm/sAoV VTI29.1cm AO Peak GR.6.3mmHgLVOT Peak Rodri.90.4cm/s LVOT VTI 17.95cmAO Mean GR.4mmHg NENA (VMAX)2.06ot8TWS (VTI)1.76cm2 Mitral Valve MV E Tqcrsvsu82.6cm/sMV DECEL PEVZ196kx MV A Nqnarlsh02.5cm/sE/A Ratio0.7 Pulmonary Valve PV Peak Eogttodf81.8cm/sPV Peak Grad.3mmHg LEFT VENTRICLE The left ventricle is normal size. There is normal left ventricular wall thickness. The left ventricu lar systolic function is normal and the ejection fraction is within normal range. The Ejection Fracti on is 50-55%. There is normal LV segmental wall motion. Transmitral Doppler flow pattern is Grade I-a bnormal relaxation pattern. RIGHT VENTRICLE The right ventricle is normal size. There is normal right ventricular wall thickness. The right ventr icular systolic function is normal. ATRIA The left atrium size is normal. The right atrium size is normal. The interatrial septum is intact wit h no evidence for an atrial septal defect or patent foramen ovale as noted on 2-D or Doppler imaging. AORTIC VALVE The aortic valve is normal in structure and function. Doppler and Color Flow revealed no significant aortic regurgitation. There is no significant aortic valvular stenosis. Calculated aortic valve area is 1.8 cm2 with maximum pressure gradient of 7 mmHg and mean pressure gradient of 4 mmHg. MITRAL VALVE The mitral valve is normal in structure and function. There is no evidence of mitral valve prolapse. There is no mitral valve stenosis. Doppler and Color-flow revealed trace mitral regurgitation. TRICUSPID VALVE The tricuspid valve is normal in structure and function. Doppler and Color Flow revealed no tricuspid valve regurgitation noted. There is no tricuspid valve stenosis. PULMONIC VALVE The pulmonic valve is not well visualized. Doppler and Color Flow revealed no pulmonic valvular regur gitation. GREAT VESSELS The aortic root is normal in size. The IVC is normal in size and collapses >50% with inspiration. PERICARDIAL EFFUSION There is no evidence of significant pericardial effusion. Critical Notification Critical Value: No <Conclusion> The left ventricle is normal size. The left ventricular systolic function is normal and the ejection fraction is within normal range. The Ejection Fraction is 50-55%. Doppler and Color Flow revealed no significant aortic regurgitation. There is no significant aortic valvular stenosis. Doppler and Color-flow revealed trace mitral regurgitation. Doppler and Color Flow revealed no tricuspid valve regurgitation noted. Signed by : Saji Ricks MD Electronically Approved : 06/04/2020 17:06:14
--- NOTE | 2020-06-10 14:17 | RAD ---
MR#: [id number] Date of Study: 06/04/2020 Ordering Physician: REFUGIO SALINAS, Referring Physician: REFUGIO SALINAS, Tech: Brit Christian RVT,[facility] APPROVED REPORT Patient Location: OUT-PATIENT Indications Claudication: PAD Grayscale images of the bilateral lower extremity arterial vessels demonstrates mild to moderate diff use atherosclerotic plaque. On the right side velocities are grossly within normal limits and mostly triphasic and biphasic in na ture with three-vessel runoff below the knee. On the left side there again mostly triphasic and biph asic waveforms without any focal obstruction noted. The dorsalis pedis vessel is either likely occlu ded or not well visualized. Risk Factors Hypertension Cardiac Disease Diabetes Smoking VELOCITY AND DOPPLER WAVEFORM ANALYSIS RIGHT cm/secWaveformSeverity LEFT cm/secWaveform Severity pCFA 186.1TriphasicpCFA 193.5Triphasic Prof Fem Art. 133.0BiphasicProf Fem Art. 109.0Triphasic Fem Art Prox. 129.7BiphasicFem Art Prox. 128.9Biphasic Fem Art Mid. 128.9BiphasicFem Art Mid. 140.5Biphasic Fem Art Dist. 114.9TriphasicFem Art Dist. 92.5Biphasic Pop Art(Fossa) 81.6TriphasicPop Art(AK) 44.0Biphasic [employer] MA[employer] Prox. 50.9BiphasicPTA Prox. 100.9Biphasic [employer] GENERATION MANAGER Dist. 88.9BiphasicPTA Dist. 108.0Biphasic Per Art Prox. 68.9BiphasicPer Art Prox. 66.2Biphasic ALEJANDRO Prox. 81.0ATA Prox. 56.9Biphasic DPA 79TriphasicDPA Critical Notification Critical Value: No <Conclusion> 1. No significant lower extremity arterial disease bilaterally with three-vessel runoff. 2. Probable distal small vessel disease with occlusion of the left dorsalis pedis artery. Signed by : Refugio Salinas, Electronically Approved : 06/10/2020 14:17:07
--- NOTE | 2020-06-10 14:18 | RAD ---
MR#: [id number] Date of Study: 06/04/2020 Ordering Physician: REFUGIO SALINAS, Referring Physician: REFUGIO SALINAS, Tech: Brit Christian RVT,[facility] APPROVED REPORT Patient Location: OUT-PATIENT Exam Type: Ankle to Brachial Index Indications Claudication: PAD Right brachial 138, left brachial 152 Posterior tibial artery right 158, left 156 Dorsalis pedis artery right 150, left 152 Bilateral KAMILA at 1.0 Risk Factors Hypertension Cardiac Disease Diabetes Smoking Pressures/Indices RightABI LeftABI Brachial 138mmHgBrachial 152mmHg Ankle(PT) 158mmHgAnkle(PT) 156mmHg Ankle(DP) 071tbHc9.0Ankle(DP) 078giLs2.0 Critical Notification Critical Value: No <Conclusion> 1. Normal KAMILA of the bilateral lower extremities Signed by : Refugio Salinas, Electronically Approved : 06/10/2020 14:17:48
== END ==
LOC: ECHO 12:49
PROVIDERS: ATTEND Internal Medicine Cardiovascular Disease
DX: I25.10 Atherosclerotic heart disease of native coronary artery without angina pectoris (principal); I73.9 Peripheral vascular disease, unspecified; I10 Essential (primary) hypertension; E11.9 Type 2 diabetes mellitus without complications; I25.2 Old myocardial infarction; Z87.891 Personal history of nicotine dependence
CPT/HCPCS: 93306; 93922; 93925